=== PATIENT | male | born 1955 | race Hispanic/Latino ===

== ENCOUNTER 2021-05-25 10:43 | Outpatient (CLI) | payer MEDICARE ==
[2021-05-25 14:38] VITALS: TEMP 97.8
== END 2021-05-25 10:44 | disposition home or self-care (01) ==
LOC: CSHCT 10:43
PROVIDERS: ATTEND Orthopaedic Surgery
DX: M75.111 Incomplete rotator cuff tear or rupture of right shoulder, not specified as traumatic (principal); M19.011 Primary osteoarthritis, right shoulder; E11.9 Type 2 diabetes mellitus without complications; I10 Essential (primary) hypertension; E78.00 Pure hypercholesterolemia, unspecified; Z79.899 Other long term (current) drug therapy; Z79.84 Long term (current) use of oral hypoglycemic drugs
CPT/HCPCS: 23350

== ENCOUNTER 2021-05-25 13:58 | Emergency (ER) | payer MEDICARE ==
[~2021-05-25 13:58] MED LIST: EPINEPHrine 1 MG/ML AMP ONE; Lidocaine 1% PF 5 ML VIAL ONE; Sodium Bicarbonate 2.5 MEQ/5 ML VIAL ONE
== END 2021-05-25 14:45 | disposition left against medical advice (07) ==
LOC: CSHERS 13:58
DX: Z53.21 Procedure and treatment not carried out due to patient leaving prior to being seen by health care provider (principal)
CPT/HCPCS: J0171